=== PATIENT | female | born 1945 ===

== ENCOUNTER 2024-03-24 05:00 | Day surgery (SDC) | payer OTHER ==
[2024-03-16 12:20] VITALS: BP 150/78
[~2024-03-24] VITALS: Ht 157.5 cm; Wt 78.5 kg
[~2024-03-24 05:00] MED LIST: ACID REDUCER20 M1 PO; ATORVASTATIN CA80 MG PO; EQUETRO200 MG PO; FLEXGEN TABLET1 EAC1 PO; HORIZANT300 MG PO; KEPPRA1000 MG PO; REFRESH CLASSI1 EACH OP; VIMPAT200 MG PO; ZESTRIL40 M1 PO; ZETIA10 MG PO
[2024-03-24] MEDS ORDERED: CEFAZOLIN SODIUM 1,000 MG VIAL ONE ×2 (13:28→16:44)
[2024-03-24] MEDS ORDERED: MORPHINE SULFATE 4 MG/ML VIAL IV ONE ×2 (19:45→20:15)
== END 2024-03-24 21:25 | disposition home or self-care (01) ==
LOC: CIR.AMB 05:00
PROVIDERS: ATTEND Orthopaedic Surgery Hand Surgery
DX: M19.231 Secondary osteoarthritis, right wrist (principal); M05.79 Rheumatoid arthritis with rheumatoid factor of multiple sites without organ or systems involvement; T84.098A Other mechanical complication of other internal joint prosthesis, initial encounter; Z96.631 Presence of right artificial wrist joint; I10 Essential (primary) hypertension